=== PATIENT | male | born 1975 | race Two or more races ===

== ENCOUNTER 2016-07-15 14:11 | Emergency (ER) | payer OTHER ==
[~2016-07-15] VITALS: Ht 172.7 cm; Wt 73.2 kg
[2016-07-15 14:18] VITALS: BP 127/72; PULSE 62; RESP 15; O2SAT 99
[2016-07-15 14:40] VITALS: BP 131/69; PULSE 62; RESP 20; O2SAT 99
[2016-07-15 14:45] LABS: BASOPHILS % (AUTO) 0.7 % (0-3); EOSINOPHILS % (AUTO) 2.9 % (0-5); MONOCYTES % (AUTO) 9.7 % (4-12); Mean Corpuscular Hemoglobin 29.3 pg (27.0-35.0); Mean Corpuscular Volume 82.4 fL (81-100); NEUTROPHILS % (AUTO) 54.8 % (40-74); Platelet Count 189 bil/L (150-400)
--- NOTE | 2016-07-15 15:03 | DRSVH ---
PROCEDURE: X-RAY CHEST ONE VIEW, PORTABLE ([id number]) INDICATIONS: SOB TECHNIQUE: One view of the chest was acquired. COMPARISON: None. FINDINGS: Surgical changes and devices: None. Lungs and pleura: No pleural effusions or pneumothorax. Lungs are clear. Mediastinum: Mediastinal contours appear normal. Heart size is normal. Bones and chest wall: No suspicious bony lesions. Overlying soft tissues appear unremarkable. IMPRESSION: Negative chest. Dictated by: Duane Smith M.D. on 07/15/2016 at 15:02 Approved by: Duane Smith M.D. on 07/15/2016 at 15:02
--- NOTE | 2016-07-15 15:05 | ED.REPORT ---
HPI-Dyspnea / Wheezing Date of Service July 15, 2016 ED Provider: Kush Orta MD 40 y/o male with no pertinent hx presents to the ED complaining of intermittent shortness of breath, specifically at night, onset 5-6 months ago. Associated sx include anxiety due to dyspnea. His sx have been intermittent for the past 2 years but recently worsened. He wakes up to take a few deep breaths, which seem to improve his sx. He does not have to elevate his bed to sleep. He denies experiencing these sx during the day or when he is exerting himself. The pt states he was diagnosed with asthma 10 years ago but has not had to use his inhaler for several years. His sx 10 years ago were more severe and were not followed with severe anxiety. He also complains of mild chest pain when he is stressed and intermittent blurry vision, onset a month ago. Currently, the pt is asymptomatic. He denies cough, fever and lower extremity edema. His grandfather due to [place] at age 55. Nursing Notes Stated Complaint: SHORT OF BREATH Chief Complaint: Respiratory Complaints Nursing Notes Reviewed: Yes ([place], Stretchrs not reconciled (patient denies being on any medications to me)) Allergies: Coded Allergies: No Known Allergies (Unverified , 07/15/16) Scheduled Albuterol HFA (Proair HFA) 8.5 Gm Hfa.aer.ad 2 PUFFS INHALATION Q4H Trazodone (Trazodone) 100 Mg Tablet 100 MG PO HS General Time Seen by MD: 15:04 Chief Complaint Shortness of breath Hx Obtained From: Patient Arrived By: Walk-in Sudden in Onset?: Yes Onset Occurred: More than a week ago... (6 months) Symptom Duration: Intermittent Severity: Current: No pain currently Severity: Maximum: No pain Recent Healthcare: No recent doctor visit Similar Sx Previous: No Past Medical History Past Medical History Reports: Asthma (as a child, resolved years ago) Past Surgical History none reported Family History Grandfather due to [place] at age 55 Father has DM Smoking History Never Smoker Social History Patient speaks [place] Alcohol Use: "Social" (rare) Drug Use: Denies drug use Ambulatory Status Independent Review of Systems Constitutional: Denies: Fever Respiratory: Reports: Shortness of breath, Denies: Non-productive cough Cardiovascular: Reports: Chest pain (mild), Denies: Edema Complete sys rev & neg: except as marked. Psychiatric: Reports: Anxiety Physical Exam Initial Vital Signs Vital Signs (First) Date Time Temp Pulse Resp B/P Pulse Ox O2 Delivery O2 Flow Rate FiO2 07/15/16 14:18 36.7 62 15 127/72 99 Room Air Initial VS: Reviewed, Vital signs normal Head / Eyes: Atraumatic, Normocephalic Abdomen / GI: Soft, Non-tender Extremities: Vascular intact, Neuro intact, No swelling, No tenderness Skin: Warm, Dry, No cyanosis Neurologic: Alert, Oriented, Nonfocal General/Constitutional: Awake, Alert, No acute distress, Cooperative Neck: Atraumatic, Supple, Full range of motion Respiratory / Chest: Atraumatic, Breath sounds NL, Breath sounds = bilat, No respiratory distress, No rales, No rhonchi, No wheezing Cardiovascular: Heart rate NL, Regular rhythm, Heart sounds NL, No gallop, No murmurs, No rubs Interpretation & Diagnostics Lab Results Interpretation Result Diagram: 07/15/16 1425 07/15/16 1425 Test 07/15/16 14:25 White Blood Count 6.9th/mm3 (3.8-10.1) Red Blood Count 5.01mil/mm3 (4.40-5.80) Hemoglobin 14.7g/dL (13.8-17.2) Hematocrit 41.3% (41.0-50.0) Mean Corpuscular Volume 82.4fL (81-100) Mean Corpuscular Hemoglobin 29.3pg (27.0-35.0) Mean Corpuscular Hemoglobin Concent 35.6% (32.0-37.0) Red Cell Distribution Width 13.3% (12.3-15.4) Platelet Count 189bil/L (150-400) Neutrophils (%) (Auto) 54.8% (40-74) Lymphocytes (%) (Auto) 31.6% (14-46) Monocytes (%) (Auto) 9.7% (4-12) Eosinophils (%) (Auto) 2.9% (0-5) Basophils (%) (Auto) 0.7% (0-3) Hold Urine Received (Received) Sodium Level 140mEq/L (134-144) Potassium Level 3.9mEq/L (3.5-5.2) Chloride Level 103mEq/L (97-108) Carbon Dioxide Level 23mmol/L (18-29) Blood Urea Nitrogen 9mg/dL (6-24) Creatinine 0.66mg/dL (0.76-1.27) Estimat Glomerular Filtration Rate 141mL/min (>59) Glucose Level 130mg/dL (60-99) Calcium Level 9.1mg/dL (8.5-10.1) Magnesium Level 1.9mg/dL (1.6-2.6) Total Bilirubin 0.6mg/dL (0.0-1.2) Aspartate Amino Transf (AST/SGOT) 22U/L (0-50) Alanine Aminotransferase (ALT/SGPT) 27U/L (0-44) Alkaline Phosphatase 107U/L (25-150) Troponin T < 0.010ug/L (0.0-0.011) Pro-B-Type Natriuretic Peptide 59.80pg/mL (0-86) Total Protein 7.4g/dL (6.4-8.4) Albumin 4.1g/dL (3.4-5.0) Lab Results Interpretation: C normal except CMP normal B and P nor negative Troponin negative Patient is PERC rule negative ECG Interpretation ECG Interpretation: Normal sinus rhtyhm. Rate 59. No J point elevation No sgns of acute ischemia No ST elevation No prior ECG to compare to. Time: 14:59 Interpreted by: ED physician X-Ray Chest Interpretation Chest Xray Interpretation: IMPRESSION: Negative chest. Dictated by: Duane Smith M.D. on 07/15/2016 at 15:02 Approved by: Duane Smith M.D. on 07/15/2016 at 15:02 View: Portable, 1 view Interpretation / Wet Read by: Interpret - Radiologist Re-Eval/Medical Decision Med Decision/Clinical Course This is a healthy 40-year-old [facility] male presents to the emergency department complaining of a sense of shortness of breath and generally occurs only at night , and last about 15 minutes and then resolves with deep breathing. It has come [place] with a sense of anxiety. However during the day he has no respiratory symptoms, no exertional symptoms, and again even at night symptoms are short- lived and then resolve a minutes and he does ultimately go to sleep lying flat. It has been going on for several years, but has worsened in the past few months, he came to the emergency department today as he starts a new job in a week and he had today off. He is not currently having any symptoms here in the department. He has had no fever, chest pain, cough, leg swelling. He has no risk factors for heart disease, no risk factors of findings suggest pulmonary embolus, and no additional complaints. He has not had any exertional symptoms Patient's only past medical history as he does note he has had a previous history of asthma but indicated he "resolved" several years ago. He wonders if this might be asthma, but again the presentation and its method of presenting is atypical. On exam the patient appears well in no visible distress or discomfort. His vital signs are normal. His physical exam is normal, his lungs are clear with normal bronchospasm, and he has no overt findings of venous thrombi embolism. Workup was pursued in the department. Chest x-ray was negative for acute disease, blood work is entirely normal including Pro BMP, troponin and in the setting of prolonged symptoms there is no finding to indicate need for additional testing. The HEART score is 1. PERC rule is negative. I am trialing an albuterol MDI and have offered a trial of trazadone for anxiety /sleep aid as well. At this point the patient has self-limited symptoms at night with no hard findings or red flags. Source of Hx: Old records Re-Evaluation/Progress : Time of Eval: 15:46 Re-Evaluation/Progress Note: tests normal Differential Diagnosis: Negative: Acute coronary syndrome, Allergic reaction, Carbon monoxide poisoning, Cardiogenic shock, Congestive heart failure, Dysrhythmia, Foreign body airway, Hypertensive emergency, Pericarditis, Pneumonia, Pulmonary embolism, Respiratory failure, Respiratory insufficiency, Upper resp infection Counseled Regarding: Diagnosis, Lab results, Need for follow-up, When/why to return to ED Discharge & Departure Impression: Primary Impression: Nocturnal dyspnea Disposition: Home Discharge Condition All VS Reviewed: Yes Condition: Stable Referrals: [facility] Scribe Attestation Portions of this note were transcribed by Janell Ramirez. I, , personally performed the history, physical exam and medical decision-making;I reviewed and confirmed the accuracy of the information in the transcribed note. Signed by Steffany Will. 07/15/16 15:42 copies to: [facility] Kush Orta MD July 15, 2016 15:05 Janell Ramirez July 15, 2016 15:13
[2016-07-15 15:08] LABS: TROPONIN T < 0.010 ug/L (0.0-0.011)
[2016-07-15 15:17] LABS: Magnesium 1.9 mg/dL (1.6-2.6)
[2016-07-15] MEDS ORDERED: ALBU8.5H2 INHALATION (15:45)
[2016-07-15] MEDS ORDERED: TRAZ-118 PO (15:45)
[2016-07-15 16:17] VITALS: BP 119/64; PULSE 63; RESP 22; O2SAT 97
== END 2016-07-15 16:12 | disposition home or self-care (01) ==
LOC: SED 14:11
DX: R06.00 Dyspnea, unspecified (principal); R07.9 Chest pain, unspecified; H53.8 Other visual disturbances; J45.909 Unspecified asthma, uncomplicated